=== PATIENT | female | born 1970 ===

== ENCOUNTER → 2019-01-18 | Outpatient (REF) | payer BC | LOC: M LAB LCGH 09:19 | PROVIDERS: ATTEND Nurse Practitioner Adult Health | DX: Z12.4 Encounter for screening for malignant neoplasm of cervix (principal) ==

== ENCOUNTER → 2019-09-07 | Outpatient (REF) | LOC: M LAB LCGH 10:47 | PROVIDERS: ATTEND Nurse Practitioner Adult Health | DX: Z30.433 Encounter for removal and reinsertion of intrauterine contraceptive device (principal) ==